=== PATIENT | female | born 1960 | race Caucasian/White ===

== ENCOUNTER 2017-03-11 10:01 | Emergency (ER) | payer OTHER ==
[~2017-03-11 10:01] MED LIST: ADVAIR HFA 115-12 GM IH; CELEXA20 MG PO; CERTAGEN PO; FAMOTIDINE PO; FISH OIL 1,0001 CAP PO; FLOVENT HFA10.6 GM INH; IRON325 ( 652 PO; LEXAPRO20 MG PO; SINEMET PO; SINGULAIR PO; TUMS500 MG PO; VITAMIN C500 M1 PO; VITAMIN E400 UNI2 PO; VOLTAREN75 MG PO; ZOLPIDEM TARTRAT5 MG PO; [UNRECOGNIZED DRUG - OTHER] PO
[2017-03-11] MEDS ORDERED: PRAVASTATIN SOD20 MG (10:08)
[2017-03-11] MEDS ORDERED: MONTELUKAST SOD10 MG PO (10:08)
[2017-03-11] MEDS ORDERED: PRINIVIL20 M1 (10:08)
[2017-03-11] MEDS ORDERED: LOPRESSOR (10:08)
[2017-03-11] MEDS ORDERED: CELEXA (10:08)
[2017-03-11] MEDS ORDERED: CHEWABLE ASPIRI81 MG (10:09)
[2017-03-11] MEDS ORDERED: FISH OIL300 MG (10:09)
[2017-03-11] MEDS ORDERED: BUSPAR5 M1 (10:10)
[2017-03-11] MEDS ORDERED: [UNRECOGNIZED DRUG - REMARK] (10:10)
== END 2017-03-11 11:51 | disposition home or self-care (01) ==
LOC: SED 10:01
DX: M54.42 Lumbago with sciatica, left side (principal); M54.16 Radiculopathy, lumbar region; I11.9 Hypertensive heart disease without heart failure; Z79.899 Other long term (current) drug therapy; Z88.0 Allergy status to penicillin
CPT/HCPCS: 96372; 99283; J1885